=== PATIENT | male | born 1950 | race Caucasian/White ===

== ENCOUNTER 2017-05-31 22:50 | Emergency (ER) | payer MEDICARE ==
[~2017-05-31] VITALS: Ht 182.9 cm; Wt 158.8 kg
--- NOTE | 2017-05-31 22:58 | ER Report ---
History and Physical Time Seen By MD: 22:58 HPI/ROS CHIEF COMPLAINT: short of breath HISTORY OF PRESENT ILLNESS: This is a 66 year old male. He was brought the ER by EMS. He is traveling through on his way back to [place] after buying a new truck. He forgot his Torsemide. He thinks that he may be short of breath because of this. He has never had problems at elevation in the past. He has no fevers or a change in cough recently. He does have some chronic cough. He denies any chest pain. No fevers or chills. EMS found him to be hypoxic with oxygen saturation of 85% and place on oxygen. Allergies: Coded Allergies: cephalexin (Verified Allergy, Severe, KIDNEY FAILURE, 05/31/17) ciprofloxacin (Verified Allergy, Severe, KIDNEY FAILURE, 05/31/17) Home Meds Reported Medications [Pyrostigmine] No Conflict Check, PO BID 05/31/17 Ascorbic Acid (VITAMIN C) 500 Mg Tablet, 500 MG PO QDAY, TAB 05/31/17 Cholecalciferol (Vitamin D3) (VITAMIN D-3) 2,000 Unit Capsule, 6 UNIT PO QDAY, CAPSULE 05/31/17 Potassium Gluconate (POTASSIUM) 99 Mg Tablet, 1 TAB PO QDAY 05/31/17 Apixaban (ELIQUIS) 5 Mg Tablet, 5 MG PO BID 05/31/17 Torsemide (TORSEMIDE) 10 Mg Tablet, 20 MG PO QDAY 05/31/17 Past Medical/Surgical History Myasthenia Gravis, pulmonary hypertension, chronic kidney disease. Reviewed Nurses Notes: Yes Constitutional Vital Sign - Last 24 Hours 05/31/17 06/01/17 22:55 02:11 Temp 99.7 Pulse 81 88 Resp 23 16 B/P (MAP) 164/114 152/98 (116) Pulse Ox 93 95 O2 Delivery Nasal Cannula Room Air Physical Exam General Appearance: The patient is alert. No acute distress. Eyes: Pupils are equal, round. No pallor, injection or icterus. ENT: Mucous membranes are moist. Normal oral mucosa. Posterior oropharynx is normal. Normal tympanic membranes and canals. Neck: Supple and non tender. No lymphadenopathy. Respiratory: Breathing easily and unlabored. Lungs are clear to auscultation. Cardiovascular: Regular rate and rhythm. No murmurs, gallops or rubs. Normal capillary refill. 1+ edema bilateral ankles. Gastrointestinal: Abdomen is soft and non tender. Nondistended. Normal active bowel sounds. Neurological: Alert and oriented x3. No focal neurologic deficits Skin: Warm and dry. Musculoskeletal: Extremities are nontender. Full range of motion. No tenderness in palpation of the cervical, thoracic and lumbar spine. DIFFERENTIAL DIAGNOSIS: After history and physical exam, differential diagnosis was considered for shortness of breath including but not limited to pulmonary infectious process, COPD, asthma, pulmonary embolus and congestive heart failure. Medical Decision Making Data Points Result Diagram: 06/01/17 0006 06/01/17 0006 Laboratory Hematology Test 06/01/17 00:06 Red Blood Count 4.36 M/uL (4.00-5.60) Mean Corpuscular Volume 94.0 fL (80.0-96.0) Mean Corpuscular Hemoglobin 31.8 pg (26.0-33.0) Mean Corpuscular Hemoglobin Concent 33.9 g/dL (32.0-36.0) Red Cell Distribution Width 14.2 % (11.5-14.5) Mean Platelet Volume 10.9 fL (7.2-11.1) Neutrophils (%) (Auto) 58.2 % (39.4-72.5) Lymphocytes (%) (Auto) 25.6 % (17.6-49.6) Monocytes (%) (Auto) 12.5 % (4.1-12.4) Eosinophils (%) (Auto) 1.3 % (0.4-6.7) Basophils (%) (Auto) 2.4 % (0.3-1.4) Nucleated RBC Relative Count (auto) 0.0 /100WBC Neutrophils # (Auto) 5.1 K/uL (2.0-7.4) Lymphocytes # (Auto) 2.2 K/uL (1.3-3.6) Monocytes # (Auto) 1.1 K/uL (0.3-1.0) Eosinophils # (Auto) 0.1 K/uL (0.0-0.5) Basophils # (Auto) 0.2 K/uL (0.0-0.1) Nucleated RBC Absolute Count (auto) 0.00 K/uL D-Dimer Quantitative (PE/DVT) < 0.27 ug/ml (0-0.50) Sodium Level 139 mmol/L (137-145) Potassium Level 4.3 mmol/L (3.5-5.0) Chloride Level 103 mmol/L (98-107) Carbon Dioxide Level 30 mmol/L (22-30) Blood Urea Nitrogen 19 mg/dl (9-21) Creatinine 1.00 mg/dl (0.66-1.25) Glomerular Filtration Rate Calc > 60.0 Random Glucose 89 mg/dl (75-110) Calcium Level 8.9 mg/dl (8.4-10.2) Total Bilirubin 0.6 mg/dl (0.2-1.3) Aspartate Amino Transf (AST/SGOT) 31 U/L (0-35) Alanine Aminotransferase (ALT/SGPT) 45 U/L (0-56) Alkaline Phosphatase 52 U/L (0-126) Troponin I 0.026 ng/ml B-Type Natriuretic Peptide 75 pg/ml (0-100) Total Protein 6.1 gm/dl (6.3-8.2) Albumin 3.5 g/dl (3.5-5.0) Chemistry Test 06/01/17 00:06 White Blood Count 8.8 k/uL (4.5-11.0) Red Blood Count 4.36 M/uL (4.00-5.60) Hemoglobin 13.9 g/dL (14.0-18.0) Hematocrit 41.0 % (42.0-52.0) Mean Corpuscular Volume 94.0 fL (80.0-96.0) Mean Corpuscular Hemoglobin 31.8 pg (26.0-33.0) Mean Corpuscular Hemoglobin Concent 33.9 g/dL (32.0-36.0) Red Cell Distribution Width 14.2 % (11.5-14.5) Platelet Count 158 K/uL (150-450) Mean Platelet Volume 10.9 fL (7.2-11.1) Neutrophils (%) (Auto) 58.2 % (39.4-72.5) Lymphocytes (%) (Auto) 25.6 % (17.6-49.6) Monocytes (%) (Auto) 12.5 % (4.1-12.4) Eosinophils (%) (Auto) 1.3 % (0.4-6.7) Basophils (%) (Auto) 2.4 % (0.3-1.4) Nucleated RBC Relative Count (auto) 0.0 /100WBC Neutrophils # (Auto) 5.1 K/uL (2.0-7.4) Lymphocytes # (Auto) 2.2 K/uL (1.3-3.6) Monocytes # (Auto) 1.1 K/uL (0.3-1.0) Eosinophils # (Auto) 0.1 K/uL (0.0-0.5) Basophils # (Auto) 0.2 K/uL (0.0-0.1) Nucleated RBC Absolute Count (auto) 0.00 K/uL D-Dimer Quantitative (PE/DVT) < 0.27 ug/ml (0-0.50) Glomerular Filtration Rate Calc > 60.0 Calcium Level 8.9 mg/dl (8.4-10.2) Total Bilirubin 0.6 mg/dl (0.2-1.3) Aspartate Amino Transf (AST/SGOT) 31 U/L (0-35) Alanine Aminotransferase (ALT/SGPT) 45 U/L (0-56) Alkaline Phosphatase 52 U/L (0-126) Troponin I 0.026 ng/ml B-Type Natriuretic Peptide 75 pg/ml (0-100) Total Protein 6.1 gm/dl (6.3-8.2) Albumin 3.5 g/dl (3.5-5.0) Coagulation Test 06/01/17 00:06 D-Dimer Quantitative (PE/DVT) < 0.27 ug/ml EKG/Imaging EKG Interpretation 12 lead EKG: Rhythm: Sinus rhythm with occasional PVCs, rate 77 [place]: normal QRS: normal ST segments: normal Imaging CHEST PA AND LATERAL 06/01/2017 12:41 AM. INDICATION: Dyspnea. COMPARISON: None. FINDINGS: Lungs are well-expanded. There is streaky opacification at the periphery of the left base. No pneumothorax or pleural effusion. Pulmonary vasculature is unremarkable. Heart size is normal. IMPRESSION: Streaky opacification of the periphery of the left lung base likely represents a prominent pericardial fat pad, atelectasis and/or scarring. Underlying infection is not excluded. Report Dictated By: Brad Dial MD at 06/01/2017 12:52 AM ED Course/Re-evaluation Clinical Indication for ER IV: IV Access ED Course After initial evaluation, the patient was starting to feel a little better. We did give him torsemide 40 mg oral dose. He did start urinating a lot. His chest x-ray and EKG were negative. Lab testing was unremarkable. On reevaluation, his oxygen saturations are stabilized between 88 and 90% while on room air. He does feel better since he has been urinating. I think his shortness of breath is a combination of that elevation, a little bit of fluid overload with heart failure , and he did have a x-ray that showed slight streaking in the left base that could represent an early pneumonia. We have provided medication for his torsemide and also got him started on a azithromycin 500 mg once a day for 3 days. Decision to Disposition Date: Jun 01, 2017 Decision to Disposition Time: 02:00 Depart Departure Latest Vital Signs Vital Signs Date Time Temp Pulse Resp B/P (MAP) Pulse Ox O2 Delivery O2 Flow Rate FiO2 06/01/17 02:11 88 16 152/98 (116) 95 Room Air 05/31/17 22:55 99.7 Impression: Primary Impression: Congestive heart failure Additional Impression: Pneumonia Condition: Improved Disposition: HOME OR SELF-CARE Patient Instructions: Community Acquired Pneumonia (ED), Torsemide (By mouth) Additional Instructions: We are providing a couple of doses of your Torsemide while you are traveling home. Take Torsemide 20mg once a day. Follow-up with your doctor at home to re-check this. You had some streaks in the lower left lung curry on chest x-ray. This could represent an early pneumonia. Your white blood cell count was normal. We would like to start you on the antibiotic Azithromycin. Take 500mg (250mg tablet x2) once a day for 3 days. Your oxygen was initially a little low, but seems to be stable between 88% and 90% now. Your breathing should improve as you decrease in elevation on your way back to [place]. Follow-up with your regular doctor for re-evaluation. Problem Qualifiers Primary Impression: Congestive heart failure Congestive heart failure type: diastolic Congestive heart failure chronicity : acute on chronic Qualified Codes: I50.33 - Acute on chronic diastolic ( congestive) heart failure Additional Impression: Pneumonia Pneumonia type: due to unspecified organism Laterality: left Lung location : lower lobe of lung Qualified Codes: J18.1 - Lobar pneumonia, unspecified organism ZENAIDA STOCK MD May 31, 2017 22:58
[2017-05-31] MEDS ORDERED: CHOL200074 PO (23:13)
[2017-05-31] MEDS ORDERED: POTA99TA6 PO (23:13)
[2017-05-31] MEDS ORDERED: APIX5TAB PO (23:13)
[2017-05-31] MEDS ORDERED: TORS10TA25 PO (23:13)
[2017-05-31] MEDS ORDERED: [UNRECOGNIZED DRUG - OTHER] PO (23:13)
[2017-05-31] MEDS ORDERED: ASCO-182 PO (23:13)
[2017-05-31] MEDS ORDERED: TORSEMIDE 20 MG TAB PO ONE (23:50)
--- NOTE | 2017-06-01 00:02 | EKG ---
FACILITY: [facility] - [place] PATIENT NAME: CRISTA HENDRICKS : [id number] MR: [id number] V: [id number] EXAM DATE: ORDERING PHYSICIAN: ZENAIDA STOCK TECHNOLOGIST: Test Reason : Blood Pressure : / mmHG Vent. Rate : 077 BPM Atrial Rate : 077 BPM P-R Int : 182 ms QRS Dur : 096 ms QT Int : 412 ms P-R-T Axes : 036 044 042 degrees QTc Int : 466 ms Sinus rhythm with occasional premature ventricular complexes Otherwise normal ECG No previous ECGs available Confirmed by DANE BRYAN ([id number]) on 06/01/2017 6:54:18 AM Referred By: Confirmed By:DANE BRYAN
[2017-06-01 00:17] LABS: PLATELET COUNT, AUTOMATED 158 K/uL (150-450)
--- NOTE | 2017-06-01 00:58 | RADIOLOGY IMAGING REPORT ---
FACILITY: [facility] - [place] PATIENT NAME: Cornel Magallanes : 1950 MR: [id number] V: [id number] EXAM DATE: ORDERING PHYSICIAN: ZENAIDA STOCK TECHNOLOGIST: [place] [facility] [place]el Mag[place] : 1950 Visit/Account:[id number] Date of Sevice: 05/31/2017 CHEST PA AND LATERAL 06/01/2017 12:41 AM. INDICATION: Dyspnea. COMPARISON: None. FINDINGS: Lungs are well-expanded. There is streaky opacification at the periphery of the left base. No pneumothorax or pleural effusion. Pulmonary vasculature is unremarkable. Heart size is normal. IMPRESSION: Streaky opacification of the periphery of the left lung base likely represents a prominen t pericardial fat pad, atelectasis and/or scarring. Underlying infection is not excluded. Report Dictated By: Brad Dial MD at 06/01/2017 12:52 AM Report E-Signed By: Brad Dial MD at 06/01/2017 12:54 AM WSN:[id number]
[2017-06-01] MEDS ORDERED: TORSEMIDE 20 MG TAB PO ONE (02:00)
[2017-06-01] MEDS ORDERED: AZITHROMYCIN 250 MG TAB TH PO ONE (02:00)
[2017-06-01] MEDS ORDERED: AZITHROMYCIN 250 MG TAB PO ONE (02:00)
[2017-06-01 02:11] VITALS: BP 152/98
== END 2017-06-01 02:25 | disposition home or self-care (01) ==
LOC: ER 22:53
DX: I50.33 Acute on chronic diastolic (congestive) heart failure (principal); J18.1 Lobar pneumonia, unspecified organism; I49.3 Ventricular premature depolarization
CPT/HCPCS: 71046; 83880; 84484; 85025; 85379; 93005; 99284; A9270; Q0144; 82040; 82247; 82310; 82374; 82435; 82565; 82947; 84075; 84132; 84155; 84295; 84450; 84460; 84520

== ENCOUNTER → 2017-05-31 | Outpatient (CLI) | payer MEDICARE ==
[~2017-05-31] MED LIST: APIX5TAB PO; ASCO-182 PO; CHOL200074 PO; POTA99TA6 PO; TORS10TA25 PO; [UNRECOGNIZED DRUG - OTHER] PO
== END ==
LOC: AMB 22:32
PROVIDERS: ATTEND Nurse Practitioner
DX: R06.00 Dyspnea, unspecified (principal)
CPT/HCPCS: A0425; A0429